=== PATIENT | male | born 1990 | race African-American/Black ===

== ENCOUNTER 2018-12-29 21:45 | Emergency (ER) | payer SELFPAY ==
[~2018-12-29] VITALS: Ht 175.3 cm; Wt 79.4 kg
--- NOTE | 2018-12-29 22:07 | NUR ---
ED Nurse Note: Pt ambulated to ED from a basketball game, pt reports hearing a pop in his L knee while landing on it. reports pain when moving in certain ways. VSS
[2018-12-29] MEDS ORDERED: IBUPROFEN600 MG ORAL (23:00)
[2018-12-29 23:05] VITALS: BP 147/1
--- NOTE | 2018-12-29 23:05 | NUR ---
ER DISCHARGE NOTE: Patient is cleared to be discharged per ERMD, pt is aox4, on room air, with stable vital signs. pt was given dc and prescription instructions, pt was able to verbalize understanding, pt id band removed. pt is able to ambulate with steady gait. pt took all belongings.
--- NOTE | 2018-12-30 00:53 | Emergency Room Report ---
History of Present Illness General Chief Complaint: Lower Extremity Injury Source: Patient Present Illness HPI 28-year-old male presents ED for evaluation. Planing of left knee pain. States that while playing basketball tonight he landed and felt a "pop" in his left knee. States pain is dull, 6 out of 10, nonradiating. Worse with walking. Denies any other injuries. Is able to bear weight but with some difficulty. No other aggravating relieving factors. Denies any other associated symptoms Allergies: Coded Allergies: No Known Allergies (Unverified , 07/09/12) Patient History Past Medical History: none Past Surgical History: none Pertinent Family History: none Social History: Denies: smoking, alcohol use, drug use Immunizations: UTD Reviewed Nursing Documentation: PMH: Agreed; PSxH: Agreed Nursing Documentation-PMH Past Medical History: No Stated History Review of Systems All Other Systems: negative except mentioned in HPI Physical Exam Vital Signs Date Time Temp Pulse Resp B/P (MAP) Pulse Ox O2 Delivery O2 Flow Rate FiO2 12/29/18 21:55 98.2 83 18 147/1 (49) 98 Room Air Sp02 EP Interpretation: reviewed, normal General Appearance: no apparent distress, alert, GCS 15, non-toxic Head: normocephalic Eyes: bilateral eye normal inspection, bilateral eye PERRL ENT: normal ENT inspection Neck: normal inspection Respiratory: normal inspection Cardiovascular #1: normal inspection Gastrointestinal: normal inspection Rectal: deferred Genitourinary: no CVA tenderness Musculoskeletal: normal range of motion, swelling - L knee Neurologic: alert, oriented x3, responsive, motor strength/tone normal, sensory intact, speech normal Psychiatric: normal inspection Skin: no rash Lymphatic: normal inspection Procedures Splinting Splinting : Consent: Verbal Pre-Made Type: knee immobilizer Pre-Proc Neuro Vasc Exam: normal Post-Proc Neuro Vasc Exam: normal Patient Tolerated: Well Complications: None Medical Decision Making Diagnostic Impression: Primary Impression: Knee injury Qualified Codes: S89.92XA - Unspecified injury of left lower leg, initial encounter ER Course Hospital Course 28-year-old M presents to ED complaining of L knee pain Differential diagnoses include: Fracture, dislocation, sprain, contusion Clinical course Patient placed on stretcher. After initial history and physical, I ordered xrays of L knee. patient declined pain meds Xrays prelim read shows no acute fracture/dislocation. placed in knee immobilizer. I discussed findings with patient. Pain likely ligamentous. Patient will benefit from conservative treatment of ice, elevation, nonweightbearing for 7 to 10 days. Reassessment. If pain is to persist recommend orthopedic evaluation then. I will provide referrals Diagnosis - knee injury Stable and discharged to home with prescription for Motrin. apply ice, keep elevated. weight bear as tolerated. Followup with PMD/ortho. Return to ED if symptoms recur or worsen Other X-Ray Diagnostic Results Other X-Ray Diagnostic Results : X-Ray ordered: L knee # of Views/Limited Vs Complete: 3 View Indication: Pain EP Interpretation: Yes Interpretation: no dislocation, no soft tissue swelling, no fractures Impression: No acute disease Electronically Signed by: Electronically signed by Ehsan Helms MD Last Vital Signs Date Time Temp Pulse Resp B/P (MAP) Pulse Ox O2 Delivery O2 Flow Rate FiO2 12/29/18 23:05 98.2 18 147/1 98 Room Air 12/29/18 21:55 83 Status: improved Disposition: HOME, SELF-CARE Condition: Stable Scripts Ibuprofen* (MOTRIN*) 600 Mg Tablet 600 MG ORAL Q8H PRN for For Pain, #30 TAB 0 Refills Prov: Ehsan Helms MD 12/29/18 Referrals: NON PHYSICIAN (PCP) [facility] Open 24 hour /7 days a week by Appointment Only [address] [facility] [address] [facility] [id number] Departure Forms: Return to Work Return to Work Date: Jan 02, 2019 Work Restrictions: No Prolonged Standing Patient Instructions: Knee Pain, [id number] Ehsan Helms MD Dec 30, 2018 00:53
--- NOTE | 2018-12-30 10:54 | Diagnostic Imaging Report ---
INDICATION: Knee Pain COMPARISON: None 3 views of the left knee were obtained. FINDINGS: There is joint space narrowing with marginal osteophyte formation and subchondral sclerosis. No joint effusion seen. No fracture or malalignment identified. IMPRESSION: Mild osteoarthritis of the knee
== END 2018-12-29 23:05 | disposition home or self-care (01) ==
LOC: EMR 22:12
DX: S89.92XA Unspecified injury of left lower leg, initial encounter (principal); Y93.67 Activity, basketball
CPT/HCPCS: 29505; 99283